=== PATIENT | female | born 1945 | race Caucasian/White ===

== ENCOUNTER 2017-07-25 07:00 | Day surgery (SDC) | payer MEDICARE, BC ==
[2017-07-25] MEDS ORDERED: fentaNYL 100 MCG/2 ML SDV ONE (08:28)
[2017-07-25] MEDS ORDERED: Propofol 200 MG/20 ML SDV ONE (08:28)
[2017-07-25] MEDS ORDERED: Midazolam 1 MG/ML 2 ML SDV ONE (08:28)
[2017-07-25] MEDS ORDERED: Lactated Ringers 1,000 ML IV SCH (08:30)
[2017-07-25 10:36] VITALS: BP 106/48
--- NOTE | 2017-07-25 11:57 | OR ---
DATE OF PROCEDURE: 07/25/2017 PREOPERATIVE DIAGNOSIS: History of Crohn's disease. POSTOPERATIVE DIAGNOSIS: Unremarkable colonoscopy, history of Crohn's disease. PROCEDURE: Colonoscopy to the cecum. ANESTHESIA: IV anesthesia with monitored anesthesia care. INDICATION: This 72-year-old white female is referred for a colonoscopy because of a history of Crohn's disease. She says her last colonoscopic exam was done 3-1/2 years ago. I counseled her for a colonoscopy with possible biopsy and/or polypectomy, including risks and alternatives, and she gave her informed consent to proceed. DESCRIPTION OF PROCEDURE: The patient was placed in the left lateral decubitus position. IV anesthesia was administered by the Anesthesia Service. Time-out was held. A rectal exam was performed, which was unremarkable. The flexible video Olympus colonoscope was introduced through her anus, up her rectum, and out her colon all the way to the cecum. We attempted to cannulate the small bowel, but this was unsuccessful. The scope was then slowly withdrawn, examining the mucosa throughout. No mucosal abnormalities were noted. The scope was retroflexed in the rectum with the distal rectum appearing unremarkable. The scope was straightened and removed. She tolerated the procedure well. Nadeem Pham MD /[id number] [email or web address]
== END 2017-07-25 10:40 | disposition home or self-care (01) ==
LOC: JP.SDS 07:00
PROVIDERS: ATTEND Surgery
DX: Z12.11 Encounter for screening for malignant neoplasm of colon (principal); K50.90 Crohn's disease, unspecified, without complications; I10 Essential (primary) hypertension; E11.9 Type 2 diabetes mellitus without complications; K21.9 Gastro-esophageal reflux disease without esophagitis; Z88.1 Allergy status to other antibiotic agents; Z88.8 Allergy status to other drugs, medicaments and biological substances; Z91.09 Other allergy status, other than to drugs and biological substances; Z91.041 Radiographic dye allergy status
CPT/HCPCS: G0121; J2250; J2704; J3010; J7120